=== PATIENT | male | born 1995 | race Caucasian/White ===

== ENCOUNTER 2020-01-04 15:39 | Emergency (ER) | payer SELFPAY ==
--- NOTE | 2020-01-04 17:02 | CT ---
CT CERVICAL SPINE: Date: 01-04-2020 Comparison: None History: Trauma, pain. Technique: Axial CT imaging at 2 mm intervals through the cervical spine with coronal and sagittal re formatted imaging. FINDINGS: The C1 ring is intact. The craniocervical junction, atlantoaxial interspace and cervicothoracic junct ion appear intact. No prevertebral soft tissue swelling. No anterolisthesis or retrolisthesis. The visualized lung apices appear unremarkable. No acute fracture or evidence of dislocation seen. IMPRESSION: No acute findings. POS: [facility]
--- NOTE | 2020-01-04 17:04 | CT ---
THORACIC SPINE CT: Date: 01-04-2020 Comparison: None History: Trauma, pain. Technique: Axial CT imaging at 2.5 mm intervals through the thoracic spine with coronal and sagittal reformatted imaging. FINDINGS: There are multiple scattered Schmorl's nodes noted within the thoracic spine including the T6 through T10 levels. Post-surgical clips in the right upper quadrant suggest prior cholecystectomy. Partially imaged lung parenchyma appears grossly unremarkable. Thoracic vertebral body height and alignment appears normal. Evaluation for central canal and/or melissa ral foraminal stenosis is limited on routine CT exam. No displaced fracture. IMPRESSION: No evidence for fracture or dislocation of the thoracic spine. POS: [facility]
--- NOTE | 2020-01-04 17:08 | CT ---
HEAD CT WITHOUT CONTRAST: Date: 01-04-2020 Comparison: None History: Injury, trauma, pain. Technique: Axial CT imaging at 5 mm intervals from vertex through the skull base without contrast. Co elan and sagittal reformatted imaging obtained. FINDINGS: There is no intracranial hemorrhage, midline shift, mass effect or ventricular enlargement. The maxil evan sinus on the left is small and opacified. There is no displaced calvarial fracture seen. IMPRESSION: No intracranial hemorrhage or displaced calvarial fracture. POS: [facility]
== END 2020-01-04 18:20 | disposition home or self-care (01) ==
LOC: MADERS 15:39
DX: S16.1XXA Strain of muscle, fascia and tendon at neck level, initial encounter (principal); S00.03XA Contusion of scalp, initial encounter; F17.210 Nicotine dependence, cigarettes, uncomplicated; W22.8XXA Striking against or struck by other objects, initial encounter
CPT/HCPCS: 70450; 72125; 72128